=== PATIENT | male | born 1995 | race Caucasian/White ===

== ENCOUNTER 2023-10-26 21:02 | Emergency (ER) | payer SELFPAY ==
[~2023-10-26] VITALS: Ht 175.2 cm; Wt 129.3 kg
[2023-10-26] MEDS ORDERED: Lidocaine Hydrochloride 30 ML VIAL IJ ONE (21:45)
[2023-10-26] MEDS ORDERED: CEPHALEXIN500 M1 PO (22:28)
[2023-10-26] MEDS ORDERED: CEPHALEXIN 500 MG CAP PO ONE (22:30)
== END 2023-10-26 22:44 | disposition home or self-care (01) ==
LOC: ED 21:02 → EDSEX 21:05 → ED 22:44
DX: S71.111A Laceration without foreign body, right thigh, initial encounter (principal); W26.8XXA Contact with other sharp object(s), not elsewhere classified, initial encounter; Y93.89 Activity, other specified; Y92.89 Other specified places as the place of occurrence of the external cause; Y99.8 Other external cause status

== ENCOUNTER 2025-03-30 04:16 | Emergency (ER) | payer SELFPAY ==
[~2025-03-30] VITALS: Ht 175.3 cm; Wt 140.6 kg
[~2025-03-30 04:16] MED LIST: CEPHALEXIN500 M1 PO
[2025-03-30] MEDS ORDERED: [UNRECOGNIZED DRUG - OTHER] PO (05:13)
[2025-03-30] MEDS ORDERED: MELOXICAM15 MG PO (05:13)
[2025-03-30] MEDS ORDERED: AFRIN 15 ML15 M1 NAS (05:15)
== END 2025-03-30 05:30 | disposition home or self-care (01) ==
LOC: ED 04:16
DX: J06.9 Acute upper respiratory infection, unspecified (principal); J32.9 Chronic sinusitis, unspecified; H92.03 Otalgia, bilateral